=== PATIENT | female | born 1945 | race Two or more races ===

== ENCOUNTER 2017-09-20 09:22 | Inpatient (IN) | payer MEDICARE, MEDICAID ==
[~2017-09-20] VITALS: Ht 160 cm; Wt 75.2 kg
[~2017-09-20 09:22] MED LIST: ALBU8.5H8 INH; AMLO5TAB2 PO; CARV3.122 PO; CYCL-259 PO; DOXY100C15 PO; DOXY100T PO; FLUT1BLS INH; GABA300C10 PO; GLIP5TAB10 PO; HYDR25TA6 PO; IPRA3AMP NPPB; LOSA50TA6 PO; METF100010 PO; MONT10TA9 PO; OMEP-110 PO; PRED5TAB PO; PREG100C PO
[2017-09-20] MEDS ORDERED: CARV3.122 PO (10:41)
[2017-09-20] MEDS ORDERED: LISI-170 PO (10:41)
[2017-09-20] MEDS ORDERED: DICL50TA4 PO (10:41)
[2017-09-20] MEDS ORDERED: ALBU8.5H8 INH (10:41)
[2017-09-20] MEDS ORDERED: ALBUTEROL/IPRATROPIUM 2.5MG/0.5MG, 3 ML ONE (11:26)
[2017-09-20] MEDS ORDERED: SODIUM CHLORIDE FLUSH 10ML SYR IVF ONE (11:30)
[2017-09-20] MEDS ORDERED: ALBUTEROL/IPRATROPIUM 2.5MG/0.5MG, 3 ML NPPB SCH (11:30)
[2017-09-20] MEDS ORDERED: SODIUM CHLORIDE 0.9% 1,000ML IVBOLUS ONE (11:30)
[2017-09-20 12:03] LABS: RAPID INFLUENZA A Negative (Negative); RAPID INFLUENZA B Negative (Negative)
[2017-09-20 12:08] LABS: BASOPHILS # (AUTO) 0.05 x10^3/uL (0-0.1); BASOPHILS % (AUTO) 0 % (0-1); EOSINOPHILS # (AUTO) 0.57 x10^3/uL (0-0.4); EOSINOPHILS % (AUTO) 4 % (1-7); LYMPHOCYTES # (AUTO) 2.21 x10^3/uL (1-3.4); LYMPHOCYTES % (AUTO) 17 % (22-44); MD NO; MEAN CORPUSCULAR HEMOGLOBIN 29.3 pg (27.0-34.8); MEAN CORPUSCULAR HGB CONC 33.1 g/dL (32.4-35.8); MEAN CORPUSCULAR VOLUME 88.4 fL (80-100); MEAN PLATELET VOLUME 8.1 fL (7.4-10.4); MONOCYTES # (AUTO) 0.86 x10^3/uL (0.2-0.8); MONOCYTES % (AUTO) 7 % (2-9); NEUTROPHILS # (AUTO) 9.45 x10^3/uL (1.8-6.8); NEUTROPHILS % (AUTO) 72 % (42-75); PLATELET COUNT 298 x10^3/uL (130-400); RED BLOOD COUNT 3.99 x10^6/uL (3.82-5.3); RED CELL DISTRIBUTION WIDTH 14.4 % (9.6-15.2)
[2017-09-20 12:20] LABS: ALBUMIN 3.5 g/dL (3.4-5.0); ANION GAP 5 mmol/L (5-15); CALCIUM 8.5 mg/dL (8.5-10.1); CHLORIDE 103 mmol/L (98-107); CREATININE 0.59 mg/dL (0.55-1.02)
[2017-09-20 12:23] LABS: TROPONIN I < 0.015 ng/mL (0.000-0.045)
[2017-09-20] MEDS ORDERED: CEFTRIAXONE PMX 1GM/50ML 50 ML IVPB ONE (12:30)
[2017-09-20] MEDS ORDERED: AZITHROMYCIN 500 MG in SODIUM CHLORIDE 0.9% 250 ML IV ONE (12:30)
[2017-09-20] MEDS ORDERED: BENZONATATE 100 MG CAPSULE PO ONE (13:00)
[2017-09-20] MEDS ORDERED: CEFTRIAXONE PMX 1GM/50ML 50 ML ONE (13:05)
[2017-09-20] MEDS ORDERED: DOCUSATE 100 MG CAPSULE PO PRN (14:00)
[2017-09-20] MEDS ORDERED: LABETALOL 5MG/ML, 20ML IVPush PRN (14:00)
[2017-09-20] MEDS ORDERED: POLYETHYLENE GLYCOL 17 GM PACKET PO PRN (14:00)
[2017-09-20] MEDS ORDERED: ONDANSETRON 2MG/ML, 2ML IVPush PRN (14:00)
[2017-09-20] MEDS ORDERED: CEFTRIAXONE PMX 1GM/50ML 50 ML IV SCH (14:00)
[2017-09-20] MEDS ORDERED: ALBUTEROL SULFATE 2.5 MG/3 ML NEB PRN (14:00)
[2017-09-20] MEDS ORDERED: BISACODYL 10 MG SUPP PR PRN (14:00)
[2017-09-20] MEDS: DICLOFENAC 50 MG TABLET.DR PO SCH ×2 (16:49→20:52)
[2017-09-20] MEDS: DOXYCYCLINE 100 MG in DEXTROSE 5% 250 ML IV SCH (16:49)
[2017-09-20 17:24] VITALS: BP 158/76
[2017-09-20 19:55] VITALS: BP 146/69
[2017-09-20] MEDS: METFORMIN HCL 1000 MG PO SCH (20:52)
[2017-09-20] MEDS: CARVEDILOL 3.125 MG TABLET PO SCH (20:52)
[2017-09-20] MEDS: GUAIFENESIN ER 600 MG TABLET PO SCH (20:52)
[2017-09-20] MEDS: ENOXAPARIN 40 MG/0.4 ML SQ SCH (20:52)
[2017-09-20] MEDS: MONTELUKAST 10 MG TABLET PO SCH (20:52)
[2017-09-21] MEDS: ACETAMINOPHEN 325 MG TABLET PO PRN ×3 (02:12→19:40)
[2017-09-21 03:33] VITALS: BP 124/63
[2017-09-21] MEDS: DOXYCYCLINE 100 MG in DEXTROSE 5% 250 ML IV SCH ×2 (04:42→17:40)
[2017-09-21 05:19] LABS: BASOPHILS # (AUTO) 0.05 x10^3/uL (0-0.1); BASOPHILS % (AUTO) 0 % (0-1); EOSINOPHILS # (AUTO) 0.41 x10^3/uL (0-0.4); EOSINOPHILS % (AUTO) 4 % (1-7); LYMPHOCYTES # (AUTO) 2.07 x10^3/uL (1-3.4); LYMPHOCYTES % (AUTO) 17 % (22-44); MD NO; MEAN CORPUSCULAR HGB CONC 33.7 g/dL (32.4-35.8); MEAN PLATELET VOLUME 8.2 fL (7.4-10.4); MONOCYTES # (AUTO) 0.98 x10^3/uL (0.2-0.8); MONOCYTES % (AUTO) 8 % (2-9); NEUTROPHILS # (AUTO) 8.39 x10^3/uL (1.8-6.8); NEUTROPHILS % (AUTO) 71 % (42-75); PLATELET COUNT 244 x10^3/uL (130-400); RED BLOOD COUNT 3.57 x10^6/uL (3.82-5.3); RED CELL DISTRIBUTION WIDTH 14.5 % (9.6-15.2)
[2017-09-21 05:28] LABS: ANION GAP 4 mmol/L (5-15); CALCIUM 8.3 mg/dL (8.5-10.1); CHLORIDE 106 mmol/L (98-107); CREATININE 0.51 mg/dL (0.55-1.02)
[2017-09-21 07:35] VITALS: BP 114/62
[2017-09-21] MEDS: LISINOPRIL 20 MG TABLET PO SCH (09:12)
[2017-09-21] MEDS: CARVEDILOL 3.125 MG TABLET PO SCH ×2 (09:12→19:41)
[2017-09-21] MEDS: GUAIFENESIN ER 600 MG TABLET PO SCH ×2 (09:12→19:42)
[2017-09-21] MEDS: DICLOFENAC 50 MG TABLET.DR PO SCH ×3 (09:12→19:42)
[2017-09-21] MEDS: KETOROLAC 30 MG/1 ML IVPush PRN ×2 (10:06→17:40)
[2017-09-21] MEDS: METFORMIN HCL 1000 MG PO SCH ×2 (10:07→19:45)
[2017-09-21] MEDS ORDERED: CEFTRIAXONE PMX 1GM/50ML 50 ML IV SCH (13:00)
[2017-09-21 13:36] VITALS: BP 110/66
[2017-09-21] MEDS ORDERED: CEFTRIAXONE 1,000 MG in DEXTROSE 5% 50 ML IV SCH ×2 (15:30)
[2017-09-21 18:30] VITALS: BP 157/82
[2017-09-21] MEDS: ALBUTEROL SULFATE 2.5 MG/3 ML NPPB PRN (19:18)
[2017-09-21] MEDS: MONTELUKAST 10 MG TABLET PO SCH (19:42)
[2017-09-21] MEDS: ENOXAPARIN 40 MG/0.4 ML SQ SCH (19:43)
[2017-09-22 02:46] VITALS: BP 117/66
[2017-09-22 05:27] LABS: BASOPHILS # (AUTO) 0.03 x10^3/uL (0-0.1); BASOPHILS % (AUTO) 0 % (0-1); EOSINOPHILS # (AUTO) 0.44 x10^3/uL (0-0.4); EOSINOPHILS % (AUTO) 4 % (1-7); LYMPHOCYTES # (AUTO) 1.71 x10^3/uL (1-3.4); LYMPHOCYTES % (AUTO) 17 % (22-44); MD NO; MEAN CORPUSCULAR HEMOGLOBIN 29.5 pg (27.0-34.8); MEAN CORPUSCULAR HGB CONC 32.9 g/dL (32.4-35.8); MEAN CORPUSCULAR VOLUME 89.6 fL (80-100); MEAN PLATELET VOLUME 8.2 fL (7.4-10.4); MONOCYTES # (AUTO) 0.84 x10^3/uL (0.2-0.8); MONOCYTES % (AUTO) 8 % (2-9); NEUTROPHILS # (AUTO) 7.18 x10^3/uL (1.8-6.8); NEUTROPHILS % (AUTO) 70 % (42-75); PLATELET COUNT 241 x10^3/uL (130-400); RED BLOOD COUNT 3.66 x10^6/uL (3.82-5.3); RED CELL DISTRIBUTION WIDTH 14.9 % (9.6-15.2)
[2017-09-22] MEDS: DOXYCYCLINE 100 MG in DEXTROSE 5% 250 ML IV SCH (05:48)
[2017-09-22 05:54] LABS: ANION GAP 7 mmol/L (5-15); CALCIUM 8.1 mg/dL (8.5-10.1); CHLORIDE 104 mmol/L (98-107)
[2017-09-22 05:55] LABS: CREATININE 0.61 mg/dL (0.55-1.02)
[2017-09-22] MEDS: ACETAMINOPHEN 325 MG TABLET PO PRN ×2 (06:47→10:44)
[2017-09-22 07:19] VITALS: BP 145/76
[2017-09-22] MEDS: METFORMIN HCL 1000 MG PO SCH (09:00)
[2017-09-22] MEDS ORDERED: CEFD300C37 PO (09:01)
[2017-09-22] MEDS ORDERED: DOXY100T PO (09:01)
[2017-09-22] MEDS ORDERED: FLU VACC QS2017-18 (36MOS+) UP/PF 0.5 ML IM-VACC ONE (10:30)
[2017-09-22] MEDS: CARVEDILOL 3.125 MG TABLET PO SCH (10:39)
[2017-09-22] MEDS: DICLOFENAC 50 MG TABLET.DR PO SCH (10:39)
[2017-09-22] MEDS: GUAIFENESIN ER 600 MG TABLET PO SCH (10:40)
[2017-09-22] MEDS: LISINOPRIL 20 MG TABLET PO SCH (10:41)
[2017-09-22] MEDS: ALBUTEROL SULFATE 2.5 MG/3 ML NPPB PRN (11:11)
== END 2017-09-22 13:29 | disposition home health service (06) | DRG 871 ==
LOC: ED 12:21 → EDIP 12:41 → 3NE 15:57
PROVIDERS: ADMIT Internal Medicine; ATTEND Internal Medicine
DX: A41.9 Sepsis, unspecified organism (principal); J96.01 Acute respiratory failure with hypoxia; J15.9 Unspecified bacterial pneumonia; J44.0 Chronic obstructive pulmonary disease with (acute) lower respiratory infection; J45.901 Unspecified asthma with (acute) exacerbation; E11.40 Type 2 diabetes mellitus with diabetic neuropathy, unspecified; E11.65 Type 2 diabetes mellitus with hyperglycemia; G89.29 Other chronic pain; I11.9 Hypertensive heart disease without heart failure; R60.0 Localized edema; Z87.01 Personal history of pneumonia (recurrent); Z87.891 Personal history of nicotine dependence; Z90.710 Acquired absence of both cervix and uterus; Z23 Encounter for immunization; Z51.5 Encounter for palliative care
CPT/HCPCS: 36415; 71010; 80048; 82040; 83605; 83880; 84484; 85025; 87040; 87400; 90686; 93005; 94640; 96361; 96365; 96375; J0456; J0696; J1650; J1885; J7060; J7613; J7620; J7030; J7050

== ENCOUNTER 2019-01-20 17:56 | Inpatient (IN) | payer MEDICARE, MEDICAID ==
[~2019-01-20] VITALS: Ht 154.9 cm; Wt 76.2 kg
[~2019-01-20 17:56] MED LIST changes: +AMLO-150 PO; -AMLO5TAB2 PO; +CEFD300C37 PO; +DICL50TA4 PO; -IPRA3AMP NPPB; +IPRA3AMP30 NPPB; +LISI-170 PO; +LOSA50TA14 PO; -LOSA50TA6 PO
--- NOTE | 2019-01-20 18:10 | NUR ---
Placed on 2 liters oxygen via nasal cannula.
--- NOTE | 2019-01-20 18:18 | NUR ---
BIOLOGY INTERN: PT TO ROOM FROM LOBBY VIA WHEELCHAIR
[2019-01-20] MEDS ORDERED: ALBUTEROL/IPRATROPIUM 2.5MG/0.5MG, 3 ML ONE (18:24)
[2019-01-20 18:25] LABS: BASOPHILS # (AUTO) 0.06 x10^3/uL (0-0.1); BASOPHILS % (AUTO) 1 % (0-1); EOSINOPHILS # (AUTO) 0.77 x10^3/uL (0-0.4); EOSINOPHILS % (AUTO) 7 % (1-7); LYMPHOCYTES # (AUTO) 3.39 x10^3/uL (1-3.4); LYMPHOCYTES % (AUTO) 30 % (22-44); MD NO; MEAN CORPUSCULAR HEMOGLOBIN 29.9 pg (27.0-34.8); MEAN CORPUSCULAR HGB CONC 33.5 g/dL (32.4-35.8); MEAN CORPUSCULAR VOLUME 89.3 fL (80-100); MEAN PLATELET VOLUME 7.4 fL (7.4-10.4); MONOCYTES # (AUTO) 0.78 x10^3/uL (0.2-0.8); MONOCYTES % (AUTO) 7 % (2-9); NEUTROPHILS # (AUTO) 6.22 x10^3/uL (1.8-6.8); NEUTROPHILS % (AUTO) 55 % (42-75); PLATELET COUNT 430 x10^3/uL (130-400); RED BLOOD COUNT 4.42 x10^6/uL (3.82-5.3); RED CELL DISTRIBUTION WIDTH 14.1 % (9.6-15.2)
[2019-01-20] MEDS ORDERED: ALBUTEROL/IPRATROPIUM 2.5MG/0.5MG, 3 ML NPPB SCH (18:30)
[2019-01-20 18:37] LABS: ALBUMIN 3.6 g/dL (3.4-5.0); ANION GAP 6 mmol/L (5-15); CALCIUM 8.7 mg/dL (8.5-10.1); CHLORIDE 105 mmol/L (98-107); CREATININE 0.83 mg/dL (0.55-1.02)
[2019-01-20 18:41] LABS: TROPONIN I < 0.015 ng/mL (0.000-0.045)
--- NOTE | 2019-01-20 19:02 | NUR ---
REPORT GIVEN TO SYLWIA DICK
[2019-01-20] MEDS ORDERED: CARB1TAB47 PO (20:29)
[2019-01-20] MEDS ORDERED: AMLO10TA8 PO (20:29)
[2019-01-20] MEDS ORDERED: PROP20TA PO (20:29)
[2019-01-20] MEDS ORDERED: DULO30CA2 PO (20:29)
--- NOTE | 2019-01-20 20:30 | NUR ---
REPORT GIVEN TO TONY DICK.
[2019-01-20] MEDS: ENOXAPARIN 40 MG/0.4 ML SQ SCH (21:00)
[2019-01-20] MEDS ORDERED: ENALAPRILAT 1.25 MG/ML, 2ML IVPush PRN (21:00)
[2019-01-20] MEDS ORDERED: AZITHROMYCIN 500 MG TABLET PO ONE (21:00)
[2019-01-20] MEDS: CARBIDOPA LEVO HOMEMEDPO SCH (21:00)
[2019-01-20] MEDS ORDERED: ONDANSETRON 2MG/ML, 2ML IVPush PRN (21:00)
[2019-01-20 21:40] LABS: HEMOGLOBIN A1C 7.6 % (4.2-6.3)
[2019-01-20 22:00] VITALS: BP 137/54
[2019-01-20] MEDS: metFORMIN XR 500 MG TAB.ER.24H PO SCH (23:12)
[2019-01-20] MEDS: DULOXETINE 30 MG CAPSULE.DR PO SCH (23:13)
[2019-01-20] MEDS: ACETAMINOPHEN 325 MG TABLET PO PRN (23:14)
[2019-01-20] MEDS: AMLODIPINE 5 MG TABLET PO SCH (23:14)
[2019-01-21 01:18] VITALS: BP 141/53
[2019-01-21] MEDS: ALBUTEROL/IPRATROPIUM 2.5MG/0.5MG, 3 ML NPPB SCH ×4 (07:00→20:00)
[2019-01-21 07:50] VITALS: BP 145/70
[2019-01-21] MEDS: metFORMIN XR 500 MG TAB.ER.24H PO SCH ×2 (09:00→22:39)
[2019-01-21] MEDS: SODIUM CHLORIDE FLUSH 10ML SYR IVF SCH ×2 (09:00→22:39)
[2019-01-21] MEDS: PROPRANOLOL 20 MG TABLET PO SCH (09:00)
[2019-01-21] MEDS ORDERED: GLUCAGON 1 MG IM PRN (09:00)
[2019-01-21] MEDS: CARBIDOPA LEVO HOMEMEDPO SCH ×3 (09:00→21:00)
[2019-01-21] MEDS ORDERED: DEXTROSE 4 GM TAB.CHEW PO PRN (09:00)
[2019-01-21] MEDS ORDERED: DEXTROSE 50%, 50ML SYRINGE IVPush PRN (09:00)
[2019-01-21] MEDS: LISINOPRIL 20 MG TABLET PO SCH (09:01)
[2019-01-21] MEDS: AMLODIPINE 5 MG TABLET PO SCH ×2 (09:01→22:39)
[2019-01-21] MEDS: DULOXETINE 30 MG CAPSULE.DR PO SCH ×2 (09:01→22:39)
[2019-01-21] MEDS: methylPREDNISolone SOD SUCC 125 MG/2 ML IVPush SCH ×3 (09:53→22:36)
[2019-01-21 14:40] VITALS: BP 135/56
[2019-01-21 19:42] VITALS: BP 120/72
[2019-01-21] MEDS: ENOXAPARIN 40 MG/0.4 ML SQ SCH (22:35)
[2019-01-22 02:22] VITALS: BP 128/73
[2019-01-22] MEDS: methylPREDNISolone SOD SUCC 125 MG/2 ML IVPush SCH ×4 (03:13→21:43)
[2019-01-22 04:51] LABS: BASOPHILS # (AUTO) 0.02 x10^3/uL (0-0.1); BASOPHILS % (AUTO) 0 % (0-1); EOSINOPHILS % (AUTO) 0 % (1-7); LYMPHOCYTES # (AUTO) 1.35 x10^3/uL (1-3.4); LYMPHOCYTES % (AUTO) 9 % (22-44); MD NO; MEAN CORPUSCULAR HEMOGLOBIN 29.2 pg (27.0-34.8); MEAN CORPUSCULAR HGB CONC 32.7 g/dL (32.4-35.8); MEAN CORPUSCULAR VOLUME 89.2 fL (80-100); MEAN PLATELET VOLUME 7.8 fL (7.4-10.4); MONOCYTES % (AUTO) 1 % (2-9); NEUTROPHILS # (AUTO) 14.45 x10^3/uL (1.8-6.8); NEUTROPHILS % (AUTO) 91 % (42-75); PLATELET COUNT 400 x10^3/uL (130-400); RED BLOOD COUNT 4.09 x10^6/uL (3.82-5.3); RED CELL DISTRIBUTION WIDTH 14.1 % (9.6-15.2)
[2019-01-22 05:05] LABS: CALCIUM 8.6 mg/dL (8.5-10.1); CHLORIDE 102 mmol/L (98-107)
[2019-01-22 05:09] LABS: ALBUMIN 3.4 g/dL (3.4-5.0); CREATININE 0.83 mg/dL (0.55-1.02)
[2019-01-22 05:20] LABS: ANION GAP 7 mmol/L (5-15)
[2019-01-22] MEDS ORDERED: GLUCAGON 1 MG IM PRN (07:30)
[2019-01-22] MEDS ORDERED: DEXTROSE 4 GM TAB.CHEW PO PRN (07:30)
[2019-01-22] MEDS ORDERED: DEXTROSE 50%, 50ML SYRINGE IVPush PRN (07:30)
[2019-01-22] MEDS: ALBUTEROL/IPRATROPIUM 2.5MG/0.5MG, 3 ML NPPB SCH ×3 (07:48→20:00)
[2019-01-22] MEDS: AMLODIPINE 5 MG TABLET PO SCH ×2 (09:00→21:48)
[2019-01-22] MEDS: CARBIDOPA LEVO HOMEMEDPO SCH ×3 (09:00→21:00)
[2019-01-22] MEDS: SODIUM CHLORIDE FLUSH 10ML SYR IVF SCH ×3 (09:00→21:43)
[2019-01-22] MEDS: DULOXETINE 30 MG CAPSULE.DR PO SCH ×2 (09:13→21:48)
[2019-01-22] MEDS: PROPRANOLOL 20 MG TABLET PO SCH (09:13)
[2019-01-22] MEDS: LISINOPRIL 20 MG TABLET PO SCH (09:13)
[2019-01-22] MEDS: metFORMIN XR 500 MG TAB.ER.24H PO SCH ×2 (09:14→21:48)
[2019-01-22 09:18] VITALS: BP 153/69
[2019-01-22] MEDS: ACETAMINOPHEN 325 MG TABLET PO PRN (11:50)
[2019-01-22] MEDS: INSULIN LISPRO 100 UNITS/ML, PEN SQ-INSULIN SCH ×3 (13:18→21:48)
[2019-01-22 14:16] VITALS: BP 148/76
[2019-01-22 19:10] VITALS: BP 148/72
[2019-01-22] MEDS: ENOXAPARIN 40 MG/0.4 ML SQ SCH (21:48)
[2019-01-23 00:45] VITALS: BP 162/69
[2019-01-23] MEDS: methylPREDNISolone SOD SUCC 125 MG/2 ML IVPush SCH (03:32)
[2019-01-23 05:44] LABS: BASOPHILS % (AUTO) 0 % (0-1); EOSINOPHILS % (AUTO) 0 % (1-7); LYMPHOCYTES # (AUTO) 1.08 x10^3/uL (1-3.4); LYMPHOCYTES % (AUTO) 6 % (22-44); MD NO; MEAN CORPUSCULAR HGB CONC 32.8 g/dL (32.4-35.8); MEAN CORPUSCULAR VOLUME 88.5 fL (80-100); MEAN PLATELET VOLUME 7.6 fL (7.4-10.4); MONOCYTES # (AUTO) 0.13 x10^3/uL (0.2-0.8); MONOCYTES % (AUTO) 1 % (2-9); NEUTROPHILS # (AUTO) 16.01 x10^3/uL (1.8-6.8); NEUTROPHILS % (AUTO) 93 % (42-75); PLATELET COUNT 376 x10^3/uL (130-400); RED BLOOD COUNT 4.31 x10^6/uL (3.82-5.3); RED CELL DISTRIBUTION WIDTH 13.9 % (9.6-15.2)
[2019-01-23 05:55] LABS: ALBUMIN 3.4 g/dL (3.4-5.0); ANION GAP 5 mmol/L (5-15); CALCIUM 8.5 mg/dL (8.5-10.1); CHLORIDE 103 mmol/L (98-107)
[2019-01-23 05:58] LABS: ALANINE AMINOTRANSFERASE 15 U/L (12-78); ALKALINE PHOSPHATASE 120 U/L (45-117); BILIRUBIN,TOTAL 0.4 mg/dL (0.2-1.0); CREATININE 0.78 mg/dL (0.55-1.02); TOTAL PROTEIN 7.4 g/dL (6.4-8.2)
[2019-01-23 07:51] VITALS: BP 155/67
[2019-01-23] MEDS: ALBUTEROL/IPRATROPIUM 2.5MG/0.5MG, 3 ML NPPB SCH ×3 (07:58→14:56)
[2019-01-23] MEDS: CARBIDOPA LEVO HOMEMEDPO SCH ×2 (09:00→16:00)
[2019-01-23] MEDS: metFORMIN XR 500 MG TAB.ER.24H PO SCH (10:00)
[2019-01-23] MEDS: PROPRANOLOL 20 MG TABLET PO SCH (10:00)
[2019-01-23] MEDS: INSULIN LISPRO 100 UNITS/ML, PEN SQ-INSULIN SCH ×3 (10:00→17:32)
[2019-01-23] MEDS: DULOXETINE 30 MG CAPSULE.DR PO SCH (10:01)
[2019-01-23] MEDS: AMLODIPINE 5 MG TABLET PO SCH (10:01)
[2019-01-23] MEDS: SODIUM CHLORIDE FLUSH 10ML SYR IVF SCH (10:01)
[2019-01-23] MEDS: LISINOPRIL 20 MG TABLET PO SCH (10:01)
[2019-01-23] MEDS ORDERED: PRED10TA PO (11:19)
[2019-01-23 14:53] VITALS: BP 154/67
[2019-01-23 16:46] VITALS: BP 153/70
[2019-01-24] MEDS ORDERED: TIOT18CA INH (18:04)
== END 2019-01-23 18:17 | disposition home or self-care (01) | DRG 189 ==
LOC: ED 19:10 → EDIP 19:45 → 3NE 20:43
PROVIDERS: ADMIT Family Medicine; ATTEND Family Medicine
DX: J96.01 Acute respiratory failure with hypoxia (principal); J44.1 Chronic obstructive pulmonary disease with (acute) exacerbation; R53.81 Other malaise; Z87.01 Personal history of pneumonia (recurrent); E11.40 Type 2 diabetes mellitus with diabetic neuropathy, unspecified; G20 Parkinson's disease; I10 Essential (primary) hypertension; Z87.891 Personal history of nicotine dependence; Z90.710 Acquired absence of both cervix and uterus; Z99.81 Dependence on supplemental oxygen
CPT/HCPCS: 36415; 71045; 80048; 80053; 82040; 82962; 83036; 83735; 83880; 84100; 84484; 85025; 93005; 94640; 99285; G0378; J1650; J7620; J1815; J2930; J7512

== ENCOUNTER 2019-12-05 14:06 | Inpatient (IN) | payer MEDICARE, MEDICAID ==
[~2019-12-05] VITALS: Ht 157.5 cm; Wt 74.8 kg
[~2019-12-05 14:06] MED LIST changes: +AMLO10TA8 PO; +CARB1TAB47 PO; +DULO30CA2 PO; +MONT10TA11 PO; -MONT10TA9 PO; +PRED10TA PO; +PROP20TA PO; +TIOT18CA INH
--- NOTE | 2019-12-05 16:36 | NUR ---
PT BROUGHT BACK TO ROOM VIA WC. FAMILY AT BS.
[2019-12-05] MEDS ORDERED: HYDROmorphone 1 MG/ML, 1ML INJ ONE ×2 (17:29→19:46)
[2019-12-05] MEDS ORDERED: CYCLOBENZAPRINE 10 MG TABLET ONE (17:29)
[2019-12-05] MEDS ORDERED: SODIUM CHLORIDE FLUSH 10ML SYR IVF ONE (17:30)
[2019-12-05] MEDS ORDERED: CYCLOBENZAPRINE 10 MG TABLET PO ONE (17:30)
[2019-12-05] MEDS: HYDROmorphone 2 MG/ML, 1ML IVPush PRN ×2 (17:33→19:49)
--- NOTE | 2019-12-05 18:11 | NUR ---
PT MEDICATED PER ORDERS. UNDERSTANDS POC. DAUGHTER AT BS.
--- NOTE | 2019-12-05 18:47 | NUR ---
PT AND FAMILY QUESTIONING HOW PT WILL MANAGE AT HOME WITH HER SEVERE BACK PAIN. ERP AT FOR RECHECK.
--- NOTE | 2019-12-05 19:18 | NUR ---
PT TO CT VIA [facility].
[2019-12-05] MEDS ORDERED: LORazepam 2 MG/ML, 1ML IVPush ONE (19:30)
[2019-12-05] MEDS ORDERED: HYDROmorphone 2 MG/ML, 1ML IVPush PRN (19:30)
--- NOTE | 2019-12-05 19:44 | NUR ---
ADMITTING MD WAS IN TO SEE PT.
[2019-12-05] MEDS ORDERED: METF500T27 PO (19:55)
[2019-12-05] MEDS ORDERED: HYDR25TA6 PO (19:56)
[2019-12-05] MEDS ORDERED: PROP20TA PO (19:56)
[2019-12-05] MEDS ORDERED: GABA300C10 PO (19:59)
[2019-12-05] MEDS ORDERED: DULO30CA2 PO (19:59)
[2019-12-05] MEDS ORDERED: FLUT1AER INH (19:59)
[2019-12-05] MEDS ORDERED: ALBU18HF INH (19:59)
[2019-12-05] MEDS ORDERED: ONDANSETRON ODT 4 MG PO PRN (20:00)
[2019-12-05] MEDS ORDERED: BISACODYL 10 MG SUPP PR PRN (20:00)
[2019-12-05] MEDS ORDERED: POLYETHYLENE GLYCOL 17 GM PACKET PO PRN (20:00)
[2019-12-05] MEDS ORDERED: ALBUTEROL SULFATE 2.5 MG/3 ML NEB PRN (20:00)
[2019-12-05 20:01] LABS: BASOPHILS # (AUTO) 0.04 x10^3/uL (0-0.1); BASOPHILS % (AUTO) 0 % (0-1); EOSINOPHILS # (AUTO) 0.32 x10^3/uL (0-0.4); EOSINOPHILS % (AUTO) 3 % (1-7); LYMPHOCYTES # (AUTO) 2.26 x10^3/uL (1-3.4); LYMPHOCYTES % (AUTO) 20 % (22-44); MD NO; MEAN CORPUSCULAR HEMOGLOBIN 28.2 pg (27.0-34.8); MEAN CORPUSCULAR HGB CONC 32.6 g/dL (32.4-35.8); MEAN CORPUSCULAR VOLUME 86.6 fL (80-100); MEAN PLATELET VOLUME 7.5 fL (7.4-10.4); MONOCYTES % (AUTO) 4 % (2-9); NEUTROPHILS # (AUTO) 8.12 x10^3/uL (1.8-6.8); NEUTROPHILS % (AUTO) 73 % (42-75); PLATELET COUNT 396 x10^3/uL (130-400); RED BLOOD COUNT 4.01 x10^6/uL (3.82-5.3); RED CELL DISTRIBUTION WIDTH 16.1 % (9.6-15.2)
--- NOTE | 2019-12-05 20:01 | NUR ---
PT MEDICATED WITH ANOTHER 1MG DILAUDID FOR BACK PAIN. MORE CALM NOW. DAUGHTER REMAINS AT BS.
[2019-12-05 20:11] LABS: ALBUMIN 3.7 g/dL (3.4-5.0); ANION GAP 7 mmol/L (5-15); CALCIUM 8.8 mg/dL (8.5-10.1); CHLORIDE 106 mmol/L (98-107); CREATININE 0.71 mg/dL (0.55-1.02)
[2019-12-05] MEDS ORDERED: TEMPLATE NON-FORMULARY MED. (Metformin Hcl** (Metformin Hcl Er**) 1,000 MG) PO SCH (21:00)
[2019-12-05 21:30] VITALS: BP 197/74
[2019-12-05] MEDS: GABAPENTIN 300 MG CAPSULE PO SCH (21:55)
[2019-12-05] MEDS: SODIUM CHLORIDE FLUSH 10ML SYR IVF SCH (21:55)
[2019-12-05] MEDS: AMLODIPINE 10 MG TAB PO SCH (21:55)
[2019-12-05] MEDS: CARVEDILOL 3.125 MG TABLET PO SCH (21:55)
[2019-12-05] MEDS: DULOXETINE 30 MG CAPSULE.DR PO SCH (21:56)
[2019-12-05] MEDS: LIDODERM 5% PATCH TD SCH (21:56)
[2019-12-05] MEDS: MONTELUKAST 10 MG TABLET PO SCH (21:56)
[2019-12-05] MEDS: CARBIDOPA/LEVODOPA 25 MG/100 MG TABLET PO SCH (22:00)
[2019-12-06 01:17] VITALS: BP 159/75
[2019-12-06 07:36] VITALS: BP 135/73
[2019-12-06 08:52] LABS: BASOPHILS # (AUTO) 0.03 x10^3/uL (0-0.1); BASOPHILS % (AUTO) 0 % (0-1); EOSINOPHILS % (AUTO) 0 % (1-7); LYMPHOCYTES # (AUTO) 1.79 x10^3/uL (1-3.4); LYMPHOCYTES % (AUTO) 15 % (22-44); MD NO; MEAN CORPUSCULAR HGB CONC 31.7 g/dL (32.4-35.8); MEAN CORPUSCULAR VOLUME 88.5 fL (80-100); MEAN PLATELET VOLUME 7.4 fL (7.4-10.4); MONOCYTES % (AUTO) 3 % (2-9); NEUTROPHILS # (AUTO) 9.67 x10^3/uL (1.8-6.8); NEUTROPHILS % (AUTO) 81 % (42-75); PLATELET COUNT 390 x10^3/uL (130-400); RED BLOOD COUNT 4.01 x10^6/uL (3.82-5.3); RED CELL DISTRIBUTION WIDTH 16.3 % (9.6-15.2)
[2019-12-06 08:56] LABS: INTERNATIONAL NORMALIZED RATIO 0.96 (0.93-1.1); PROTHROMBIN TIME 10.2 Seconds (9.6-11.5)
[2019-12-06] MEDS: BUDESONIDE 0.5 MG/2 ML INHA NEB SCH ×2 (09:00→20:12)
[2019-12-06] MEDS: ALBUTEROL/IPRATROPIUM 2.5MG/0.5MG, 3 ML NEB SCH ×3 (09:00→20:12)
[2019-12-06] MEDS ORDERED: LISINOPRIL 20 MG TABLET PO SCH (09:00)
[2019-12-06 09:05] LABS: ALANINE AMINOTRANSFERASE 14 U/L (12-78); ALBUMIN 3.2 g/dL (3.4-5.0); ANION GAP 7 mmol/L (5-15); CALCIUM 8.6 mg/dL (8.5-10.1); CHLORIDE 107 mmol/L (98-107); CREATININE 0.66 mg/dL (0.55-1.02)
[2019-12-06 09:07] LABS: ALKALINE PHOSPHATASE 127 U/L (45-117); BILIRUBIN,TOTAL 0.3 mg/dL (0.2-1.0); TOTAL PROTEIN 7.3 g/dL (6.4-8.2)
[2019-12-06] MEDS: ACETAMINOPHEN 325 MG TABLET PO PRN (09:43)
[2019-12-06] MEDS: CARVEDILOL 3.125 MG TABLET PO SCH (09:43)
[2019-12-06] MEDS: DULOXETINE 30 MG CAPSULE.DR PO SCH (09:43)
[2019-12-06] MEDS: HYDROCHLOROTHIAZIDE 25 MG TABLET PO SCH (09:44)
[2019-12-06] MEDS: metFORMIN XR 500 MG TAB.ER.24H PO SCH (09:44)
[2019-12-06] MEDS: CARBIDOPA/LEVODOPA 25 MG/100 MG TABLET PO SCH ×2 (09:44→15:27)
[2019-12-06] MEDS: GABAPENTIN 300 MG CAPSULE PO SCH ×2 (09:44→15:27)
[2019-12-06] MEDS: SODIUM CHLORIDE FLUSH 10ML SYR IVF SCH (09:44)
[2019-12-06] MEDS: SENNA/DOCUSATE TABLET PO SCH (09:44)
[2019-12-06] MEDS: LISINOPRIL 20 MG TABLET PO SCH (09:44)
[2019-12-06] MEDS: AMLODIPINE 10 MG TAB PO SCH (09:46)
[2019-12-06] MEDS: LIDODERM REMOVE PATCH NOTE XX SCH (10:00)
[2019-12-06] MEDS: IBUPROFEN 600 MG TABLET PO PRN (13:47)
[2019-12-06 13:52] VITALS: BP 113/59
[2019-12-06] MEDS: METHOCARBAMOL 500 MG TABLET PO PRN (15:27)
[2019-12-07] MEDS: SODIUM CHLORIDE FLUSH 10ML SYR IVF SCH ×3 (00:26→21:00)
[2019-12-07] MEDS: MONTELUKAST 10 MG TABLET PO SCH ×2 (00:27→21:54)
[2019-12-07] MEDS: LISINOPRIL 20 MG TABLET PO SCH ×3 (00:27→21:55)
[2019-12-07] MEDS: DULOXETINE 30 MG CAPSULE.DR PO SCH ×3 (00:28→21:55)
[2019-12-07] MEDS: CARBIDOPA/LEVODOPA 25 MG/100 MG TABLET PO SCH ×4 (00:29→21:55)
[2019-12-07] MEDS: GABAPENTIN 300 MG CAPSULE PO SCH ×4 (00:31→21:54)
[2019-12-07] MEDS: CARVEDILOL 3.125 MG TABLET PO SCH ×3 (00:31→21:55)
[2019-12-07] MEDS: AMLODIPINE 10 MG TAB PO SCH ×3 (00:31→21:54)
[2019-12-07] MEDS: LIDODERM 5% PATCH TD SCH ×2 (00:32→21:55)
[2019-12-07 02:00] VITALS: BP 125/71
[2019-12-07] MEDS: ALBUTEROL/IPRATROPIUM 2.5MG/0.5MG, 3 ML NEB SCH ×4 (03:10→19:39)
[2019-12-07] MEDS: SENNA/DOCUSATE TABLET PO SCH (07:17)
[2019-12-07 07:49] VITALS: BP 114/57
[2019-12-07] MEDS: metFORMIN XR 500 MG TAB.ER.24H PO SCH (09:51)
[2019-12-07] MEDS: ACETAMINOPHEN 325 MG TABLET PO PRN (09:51)
[2019-12-07] MEDS: HYDROCHLOROTHIAZIDE 25 MG TABLET PO SCH (09:52)
[2019-12-07] MEDS: LIDODERM REMOVE PATCH NOTE XX SCH (10:00)
[2019-12-07 10:28] LABS: MICROSCOPIC INDICATED
[2019-12-07] MEDS: BUDESONIDE 0.5 MG/2 ML INHA NEB SCH ×2 (10:30→19:39)
[2019-12-07 11:00] LABS: CULTURE INDICATED? YES
[2019-12-07 13:30] VITALS: BP 126/66
[2019-12-07] MEDS: METHOCARBAMOL 500 MG TABLET PO PRN ×2 (15:37→23:30)
[2019-12-07 20:38] VITALS: BP 107/56
[2019-12-07] MEDS: IBUPROFEN 600 MG TABLET PO PRN (22:06)
[2019-12-08 00:52] VITALS: BP 112/57
[2019-12-08] MEDS: ALBUTEROL/IPRATROPIUM 2.5MG/0.5MG, 3 ML NEB SCH ×4 (01:44→20:05)
[2019-12-08] MEDS: HYDROmorphone 2 MG/ML, 1ML IVPush PRN ×2 (05:08→18:33)
[2019-12-08] MEDS: BUDESONIDE 0.5 MG/2 ML INHA NEB SCH ×2 (06:31→20:05)
[2019-12-08 08:11] VITALS: BP 108/73
[2019-12-08] MEDS: HYDROCHLOROTHIAZIDE 25 MG TABLET PO SCH (08:13)
[2019-12-08] MEDS: SENNA/DOCUSATE TABLET PO SCH (08:13)
[2019-12-08] MEDS: LISINOPRIL 20 MG TABLET PO SCH ×2 (08:13→21:25)
[2019-12-08] MEDS: metFORMIN XR 500 MG TAB.ER.24H PO SCH (08:13)
[2019-12-08] MEDS: METHOCARBAMOL 500 MG TABLET PO PRN ×2 (08:13→16:44)
[2019-12-08] MEDS: GABAPENTIN 300 MG CAPSULE PO SCH ×3 (08:13→21:24)
[2019-12-08] MEDS: CARBIDOPA/LEVODOPA 25 MG/100 MG TABLET PO SCH ×3 (08:14→21:25)
[2019-12-08] MEDS: AMLODIPINE 10 MG TAB PO SCH ×2 (08:14→21:25)
[2019-12-08] MEDS: DULOXETINE 30 MG CAPSULE.DR PO SCH ×2 (08:14→21:24)
[2019-12-08] MEDS: CARVEDILOL 3.125 MG TABLET PO SCH ×2 (08:14→21:25)
[2019-12-08] MEDS: SODIUM CHLORIDE FLUSH 10ML SYR IVF SCH ×2 (08:14→21:26)
[2019-12-08] MEDS: LIDODERM REMOVE PATCH NOTE XX SCH (08:17)
[2019-12-08 08:22] LABS: BASOPHILS # (AUTO) 0.04 x10^3/uL (0-0.1); BASOPHILS % (AUTO) 0 % (0-1); EOSINOPHILS # (AUTO) 0.31 x10^3/uL (0-0.4); EOSINOPHILS % (AUTO) 3 % (1-7); LYMPHOCYTES # (AUTO) 2.37 x10^3/uL (1-3.4); LYMPHOCYTES % (AUTO) 20 % (22-44); MD NO; MEAN CORPUSCULAR HEMOGLOBIN 28.4 pg (27.0-34.8); MEAN CORPUSCULAR HGB CONC 32.8 g/dL (32.4-35.8); MEAN CORPUSCULAR VOLUME 86.6 fL (80-100); MEAN PLATELET VOLUME 7.3 fL (7.4-10.4); MONOCYTES # (AUTO) 0.65 x10^3/uL (0.2-0.8); MONOCYTES % (AUTO) 6 % (2-9); NEUTROPHILS # (AUTO) 8.43 x10^3/uL (1.8-6.8); NEUTROPHILS % (AUTO) 71 % (42-75); PLATELET COUNT 383 x10^3/uL (130-400); RED BLOOD COUNT 4.07 x10^6/uL (3.82-5.3); RED CELL DISTRIBUTION WIDTH 15.6 % (9.6-15.2)
[2019-12-08 10:24] VITALS: BP 112/66
[2019-12-08 14:45] VITALS: BP 118/70
[2019-12-08] MEDS: ACETAMINOPHEN 325 MG TABLET PO PRN (14:57)
[2019-12-08 15:21] LABS: MICROSCOPIC AUTO
[2019-12-08 16:19] LABS: CULTURE INDICATED? YES
[2019-12-08 19:40] VITALS: BP 160/72
[2019-12-08] MEDS: LIDODERM 5% PATCH TD SCH (21:25)
[2019-12-08] MEDS: MONTELUKAST 10 MG TABLET PO SCH (21:25)
[2019-12-09] MEDS: HYDROmorphone 2 MG/ML, 1ML IVPush PRN ×2 (02:21→12:39)
[2019-12-09] MEDS: LIDODERM 5% PATCH TD SCH (02:33)
[2019-12-09] MEDS: ALBUTEROL/IPRATROPIUM 2.5MG/0.5MG, 3 ML NEB SCH ×4 (03:00→20:30)
[2019-12-09 03:30] VITALS: BP 118/59
[2019-12-09] MEDS ORDERED: D5%-0.9% NACL 500 ML IV SCH (07:30)
[2019-12-09 07:52] VITALS: BP 111/67
[2019-12-09 08:24] LABS: MEAN CORPUSCULAR HGB CONC 31.8 g/dL (32.4-35.8); MEAN CORPUSCULAR VOLUME 88.2 fL (80-100); MEAN PLATELET VOLUME 7.7 fL (7.4-10.4); PLATELET COUNT 353 x10^3/uL (130-400); RED BLOOD COUNT 3.98 x10^6/uL (3.82-5.3); RED CELL DISTRIBUTION WIDTH 15.9 % (9.6-15.2)
[2019-12-09 08:34] LABS: ANION GAP 7 mmol/L (5-15); CALCIUM 8.3 mg/dL (8.5-10.1); CHLORIDE 96 mmol/L (98-107); CREATININE 0.64 mg/dL (0.55-1.02)
[2019-12-09] MEDS: GABAPENTIN 300 MG CAPSULE PO SCH ×3 (08:39→23:52)
[2019-12-09] MEDS: CARBIDOPA/LEVODOPA 25 MG/100 MG TABLET PO SCH ×3 (08:39→23:52)
[2019-12-09] MEDS: CARVEDILOL 3.125 MG TABLET PO SCH ×2 (08:40→23:50)
[2019-12-09] MEDS: HYDROCHLOROTHIAZIDE 25 MG TABLET PO SCH (08:40)
[2019-12-09] MEDS: AMLODIPINE 10 MG TAB PO SCH ×2 (08:40→23:50)
[2019-12-09] MEDS: LISINOPRIL 20 MG TABLET PO SCH ×2 (08:40→23:50)
[2019-12-09] MEDS: DULOXETINE 30 MG CAPSULE.DR PO SCH ×2 (08:40→23:52)
[2019-12-09] MEDS: SENNA/DOCUSATE TABLET PO SCH (08:41)
[2019-12-09] MEDS: SODIUM CHLORIDE FLUSH 10ML SYR IVF SCH ×2 (08:41→23:51)
[2019-12-09 08:56] LABS: MD YES
[2019-12-09 08:58] LABS: BASOS#(MANUAL) 0.09 x10^3/uL (0-0.1); BASOS% (MANUAL) 1 % (0-1); EOS#(MANUAL) 0.19 x10^3/uL (0.0-0.4); EOS% (MANUAL) 2 % (1-7); LYMPHS% (MANUAL) 14 % (22-44); MONOS#(MANUAL) 0.56 x10^3/uL (0.3-2.7); MONOS% (MANUAL) 6 % (2-9); SEG#(MANUAL) 7.16 x10^3/uL (1.8-6.8); SEGS% (MANUAL) 77 % (42-75)
[2019-12-09 08:59] LABS: <PLATELET ESTIMATE> ADEQUATE; <PLT MORPHOLOGY> NORMAL PLT MORPH; ANISOCYTOSIS 1+
[2019-12-09] MEDS: LIDODERM REMOVE PATCH NOTE XX SCH (10:00)
[2019-12-09] MEDS: BUDESONIDE 0.5 MG/2 ML INHA NEB SCH ×2 (10:05→20:30)
[2019-12-09] MEDS ORDERED: KETOROLAC 30 MG/1 ML ONE (10:10)
[2019-12-09] MEDS ORDERED: PROPOFOL 10 MG/ML, 50ML ONE (10:10)
[2019-12-09] MEDS ORDERED: CEFAZOLIN 1,000 MG ONE ×2 (10:10→15:16)
[2019-12-09] MEDS ORDERED: PHENYLEPHRINE 10 MG/ML ONE (10:10)
[2019-12-09] MEDS ORDERED: DEXAMETHASONE 4 MG/ML, 1ML ONE ×2 (10:10→15:16)
[2019-12-09] MEDS ORDERED: SUCCINYLCHOLINE 20 MG/ML, 10ML ONE ×2 (10:10→15:16)
[2019-12-09] MEDS ORDERED: ONDANSETRON 2MG/ML, 2ML ONE ×2 (10:10→15:16)
[2019-12-09] MEDS: INSULIN LISPRO 100 UNITS/ML, PEN SQ-INSULIN SCH ×2 (10:44→15:56)
[2019-12-09 12:47] VITALS: BP 142/77
[2019-12-09 13:30] VITALS: BP 191/75
[2019-12-09] MEDS ORDERED: MIDAZOLAM 1 MG/ML, 2ML ONE (14:08)
[2019-12-09] MEDS ORDERED: FENTANYL PF 250 MCG/5ML ONE (14:10)
[2019-12-09] MEDS ORDERED: PROPOFOL 50 ML ONE (14:10)
[2019-12-09] MEDS ORDERED: THROMBIN 5,000 UNIT VIAL TP ONE (14:14)
[2019-12-09] MEDS ORDERED: EPINEPHRINE 1 MG/ML, 1ML ONE (14:14)
[2019-12-09] MEDS ORDERED: BUPIVACAINE/PF 0.25% ONE (14:14)
[2019-12-09] MEDS ORDERED: VANCOMYCIN 1,000 MG ONE (14:14)
[2019-12-09] MEDS ORDERED: BACITRACIN 50,000 UNIT ONE (14:14)
[2019-12-09] MEDS ORDERED: NEOSTIGMINE 1 MG/ML, 10ML ONE (15:16)
[2019-12-09] MEDS ORDERED: PROPOFOL 10 MG/ML, 20ML ONE (15:16)
[2019-12-09] MEDS ORDERED: GLYCOPYRROLATE 0.2MG/1ML, 5ML ONE (15:16)
[2019-12-09] MEDS ORDERED: ROCURONIUM 10MG/ML,5ML ONE (15:16)
[2019-12-09] MEDS ORDERED: PROMETHAZINE 25 MG/ML, 1ML IV PRN (16:00)
[2019-12-09] MEDS ORDERED: EPHEDRINE 50 MG/ML, 1ML IVPush PRN (16:00)
[2019-12-09] MEDS ORDERED: HYDROmorphone 2 MG/ML, 1ML IVPush PRN (16:00)
[2019-12-09] MEDS ORDERED: ONDANSETRON 2MG/ML, 2ML IV PRN ×2 (16:00→21:00)
[2019-12-09] MEDS ORDERED: FENTANYL PF 100 MCG/2ML IV PRN (16:00)
[2019-12-09] MEDS ORDERED: hydrALAzine 20 MG/ML, 1ML IV PRN (16:00)
[2019-12-09] MEDS ORDERED: LABETALOL 5MG/ML, 20ML IV PRN (16:00)
[2019-12-09] MEDS ORDERED: OXYcodone 5 MG/5 ML ORAL.SOL UDC PO PRN (16:00)
[2019-12-09] MEDS ORDERED: MEPERIDINE/PF 25MG/ML,1ML IVPush PRN (16:00)
[2019-12-09] MEDS ORDERED: DEXTROSE 50%, 50ML SYRINGE ONE (16:13)
[2019-12-09] MEDS ORDERED: HYDROmorphone 2 MG/ML, 1ML IM PRN (20:30)
[2019-12-09] MEDS ORDERED: HYDROmorphone 2MG TABLET PO PRN (20:30)
[2019-12-09] MEDS ORDERED: PHARMACY MAY ADJ FOR RENAL FX MC PRN (20:30)
[2019-12-09] MEDS ORDERED: DIPHENHYDRAMINE 25 MG CAPSULE PO PRN (20:30)
[2019-12-09] MEDS ORDERED: OXYcodone IR 5MG TABLET PO PRN ×2 (20:30)
[2019-12-09] MEDS ORDERED: BISACODYL 10 MG SUPP PR PRN (21:00)
[2019-12-09] MEDS ORDERED: MAGNESIUM HYDROXIDE 8%, 30ML UDC PO PRN (21:00)
[2019-12-09] MEDS ORDERED: DIPHENHYDRAMINE 50 MG/ML, 1ML IM PRN (21:00)
[2019-12-09] MEDS ORDERED: DIPHENHYDRAMINE 50 MG/ML, 1ML IVPush PRN (21:00)
[2019-12-09] MEDS ORDERED: PROMETHAZINE 25 MG/ML, 1ML IM PRN (21:00)
[2019-12-09] MEDS: INSULIN REGULAR 100 UNITS/ML, 3ML VIAL SQ-INSULIN SCH (21:00)
[2019-12-09] MEDS ORDERED: ZOLPIDEM 5MG TABLET PO PRN (21:00)
[2019-12-09] MEDS ORDERED: NS + 20MEQ KCL 1,000 ML IV SCH (21:30)
[2019-12-09 23:30] VITALS: BP 123/51
[2019-12-09] MEDS: CEFAZOLIN PMX 1GM/50ML 50 ML IVPB SCH (23:45)
[2019-12-09] MEDS: MONTELUKAST 10 MG TABLET PO SCH (23:52)
[2019-12-09] MEDS: METHOCARBAMOL 500 MG TABLET PO SCH (23:52)
[2019-12-10] MEDS: ALBUTEROL/IPRATROPIUM 2.5MG/0.5MG, 3 ML NEB SCH ×4 (02:42→20:21)
[2019-12-10 03:26] VITALS: BP 108/65
[2019-12-10 05:45] LABS: BASOPHILS % (AUTO) 0 % (0-1); EOSINOPHILS % (AUTO) 0 % (1-7); LYMPHOCYTES # (AUTO) 0.67 x10^3/uL (1-3.4); LYMPHOCYTES % (AUTO) 6 % (22-44); MD NO; MEAN CORPUSCULAR HEMOGLOBIN 28.9 pg (27.0-34.8); MEAN CORPUSCULAR HGB CONC 32.9 g/dL (32.4-35.8); MEAN PLATELET VOLUME 8.1 fL (7.4-10.4); MONOCYTES # (AUTO) 0.13 x10^3/uL (0.2-0.8); MONOCYTES % (AUTO) 1 % (2-9); NEUTROPHILS # (AUTO) 10.97 x10^3/uL (1.8-6.8); NEUTROPHILS % (AUTO) 93 % (42-75); PLATELET COUNT 294 x10^3/uL (130-400); RED BLOOD COUNT 3.47 x10^6/uL (3.82-5.3); RED CELL DISTRIBUTION WIDTH 15.9 % (9.6-15.2)
[2019-12-10 05:47] LABS: ANION GAP 6 mmol/L (5-15); CALCIUM 8.3 mg/dL (8.5-10.1); CHLORIDE 95 mmol/L (98-107); CREATININE 0.75 mg/dL (0.55-1.02)
[2019-12-10 07:51] VITALS: BP 118/51
[2019-12-10] MEDS: CEFAZOLIN PMX 1GM/50ML 50 ML IVPB SCH (08:14)
[2019-12-10] MEDS: BUDESONIDE 0.5 MG/2 ML INHA NEB SCH ×2 (09:00→20:21)
[2019-12-10 09:26] VITALS: BP_SYST 100; BP_SYST 129; BP_DIAS 56; BP_DIAS 65
[2019-12-10] MEDS: METHOCARBAMOL 500 MG TABLET PO SCH ×3 (09:30→20:57)
[2019-12-10] MEDS: CARBIDOPA/LEVODOPA 25 MG/100 MG TABLET PO SCH ×3 (09:30→20:57)
[2019-12-10] MEDS: DULOXETINE 30 MG CAPSULE.DR PO SCH ×2 (09:31→20:57)
[2019-12-10] MEDS: CARVEDILOL 3.125 MG TABLET PO SCH ×2 (09:31→20:57)
[2019-12-10] MEDS: GABAPENTIN 300 MG CAPSULE PO SCH ×3 (09:31→20:57)
[2019-12-10] MEDS: SENNA/DOCUSATE TABLET PO SCH (09:31)
[2019-12-10] MEDS: INSULIN REGULAR 100 UNITS/ML, 3ML VIAL SQ-INSULIN SCH ×4 (09:32→20:37)
[2019-12-10] MEDS: SODIUM CHLORIDE FLUSH 10ML SYR IVF SCH ×2 (09:33→20:57)
[2019-12-10 12:23] VITALS: BP 123/67
[2019-12-10] MEDS ORDERED: SODIUM CHLORIDE 0.9% 1,000 ML IV SCH (16:30)
[2019-12-10] MEDS: metFORMIN 500 MG TABLET PO SCH (16:47)
[2019-12-10] MEDS ORDERED: ENOXAPARIN 40 MG/0.4 ML SQ SCH (18:00)
[2019-12-10] MEDS: ENOXAPARIN 40 MG/0.4 ML SQ SCH (18:07)
[2019-12-10] MEDS: ACETAMINOPHEN 325 MG TABLET PO PRN (18:08)
[2019-12-10 18:26] VITALS: BP 139/65
[2019-12-10] MEDS: NS + 20MEQ KCL 1,000 ML IV SCH (20:53)
[2019-12-10] MEDS: MONTELUKAST 10 MG TABLET PO SCH (20:57)
[2019-12-11 01:01] VITALS: BP 103/60
[2019-12-11] MEDS: ALBUTEROL/IPRATROPIUM 2.5MG/0.5MG, 3 ML NEB SCH ×4 (03:00→19:47)
[2019-12-11 05:41] LABS: MEAN CORPUSCULAR HEMOGLOBIN 28.9 pg (27.0-34.8); MEAN CORPUSCULAR HGB CONC 33.4 g/dL (32.4-35.8); MEAN CORPUSCULAR VOLUME 86.4 fL (80-100); MEAN PLATELET VOLUME 8.3 fL (7.4-10.4); PLATELET COUNT 253 x10^3/uL (130-400); RED BLOOD COUNT 2.82 x10^6/uL (3.82-5.3); RED CELL DISTRIBUTION WIDTH 15.6 % (9.6-15.2)
[2019-12-11 06:06] LABS: BASOPHILS # (AUTO) 0.07 x10^3/uL (0-0.1); BASOPHILS % (AUTO) 1 % (0-1); EOSINOPHILS # (AUTO) 0.04 x10^3/uL (0-0.4); EOSINOPHILS % (AUTO) 0 % (1-7); LYMPHOCYTES # (AUTO) 2.37 x10^3/uL (1-3.4); LYMPHOCYTES % (AUTO) 21 % (22-44); MD SCAN; MONOCYTES % (AUTO) 10 % (2-9); NEUTROPHILS # (AUTO) 7.97 x10^3/uL (1.8-6.8); NEUTROPHILS % (AUTO) 69 % (42-75)
[2019-12-11] MEDS: INSULIN REGULAR 100 UNITS/ML, 3ML VIAL SQ-INSULIN SCH ×4 (06:08→21:00)
[2019-12-11 06:52] VITALS: BP 138/59
[2019-12-11] MEDS: NS + 20MEQ KCL 1,000 ML IV SCH (07:30)
[2019-12-11 09:38] VITALS: BP 124/66
[2019-12-11] MEDS: SENNA/DOCUSATE TABLET PO SCH (09:43)
[2019-12-11] MEDS: METHOCARBAMOL 500 MG TABLET PO SCH ×3 (09:43→20:32)
[2019-12-11] MEDS: DULOXETINE 30 MG CAPSULE.DR PO SCH ×2 (09:43→20:32)
[2019-12-11] MEDS: GABAPENTIN 300 MG CAPSULE PO SCH ×3 (09:43→20:32)
[2019-12-11] MEDS: CARVEDILOL 3.125 MG TABLET PO SCH ×2 (09:43→20:32)
[2019-12-11] MEDS: metFORMIN 500 MG TABLET PO SCH ×2 (09:43→16:53)
[2019-12-11] MEDS: CARBIDOPA/LEVODOPA 25 MG/100 MG TABLET PO SCH ×3 (09:43→20:32)
[2019-12-11] MEDS: SODIUM CHLORIDE FLUSH 10ML SYR IVF SCH ×2 (09:44→21:00)
[2019-12-11] MEDS: ACETAMINOPHEN 325 MG TABLET PO PRN ×2 (09:44→16:53)
[2019-12-11] MEDS: BUDESONIDE 0.5 MG/2 ML INHA NEB SCH ×2 (10:18→19:47)
[2019-12-11 10:20] LABS: ANION GAP 5 mmol/L (5-15); CALCIUM 7.9 mg/dL (8.5-10.1); CHLORIDE 98 mmol/L (98-107); CREATININE 0.69 mg/dL (0.55-1.02)
[2019-12-11 13:09] VITALS: BP 122/66
[2019-12-11] MEDS: ENOXAPARIN 40 MG/0.4 ML SQ SCH (18:44)
[2019-12-11 18:56] VITALS: BP 129/67
[2019-12-11] MEDS: MONTELUKAST 10 MG TABLET PO SCH (20:32)
[2019-12-11] MEDS: AMLODIPINE 5 MG TABLET PO SCH (20:33)
[2019-12-12 00:52] VITALS: BP 132/69
[2019-12-12] MEDS: ALBUTEROL/IPRATROPIUM 2.5MG/0.5MG, 3 ML NEB SCH ×4 (02:40→18:58)
[2019-12-12 06:02] LABS: BASOPHILS # (AUTO) 0.03 x10^3/uL (0-0.1); BASOPHILS % (AUTO) 0 % (0-1); EOSINOPHILS # (AUTO) 0.21 x10^3/uL (0-0.4); EOSINOPHILS % (AUTO) 2 % (1-7); LYMPHOCYTES # (AUTO) 1.56 x10^3/uL (1-3.4); LYMPHOCYTES % (AUTO) 17 % (22-44); MD NO; MEAN CORPUSCULAR HEMOGLOBIN 29.4 pg (27.0-34.8); MEAN CORPUSCULAR HGB CONC 32.9 g/dL (32.4-35.8); MEAN CORPUSCULAR VOLUME 89.2 fL (80-100); MEAN PLATELET VOLUME 8.2 fL (7.4-10.4); MONOCYTES # (AUTO) 0.99 x10^3/uL (0.2-0.8); MONOCYTES % (AUTO) 11 % (2-9); NEUTROPHILS # (AUTO) 6.63 x10^3/uL (1.8-6.8); NEUTROPHILS % (AUTO) 70 % (42-75); PLATELET COUNT 257 x10^3/uL (130-400); RED BLOOD COUNT 2.69 x10^6/uL (3.82-5.3); RED CELL DISTRIBUTION WIDTH 15.8 % (9.6-15.2)
[2019-12-12] MEDS: INSULIN REGULAR 100 UNITS/ML, 3ML VIAL SQ-INSULIN SCH ×4 (06:23→21:00)
[2019-12-12 07:18] VITALS: BP 137/61
[2019-12-12] MEDS: BUDESONIDE 0.5 MG/2 ML INHA NEB SCH ×2 (07:23→18:58)
[2019-12-12 08:21] VITALS: BP 135/73
[2019-12-12] MEDS: DULOXETINE 30 MG CAPSULE.DR PO SCH ×2 (08:25→20:37)
[2019-12-12] MEDS: GABAPENTIN 300 MG CAPSULE PO SCH ×3 (08:25→20:37)
[2019-12-12] MEDS: metFORMIN 500 MG TABLET PO SCH ×2 (08:25→16:27)
[2019-12-12] MEDS: ACETAMINOPHEN 325 MG TABLET PO PRN (08:25)
[2019-12-12] MEDS: SENNA/DOCUSATE TABLET PO SCH (08:25)
[2019-12-12] MEDS: AMLODIPINE 5 MG TABLET PO SCH ×2 (08:26→20:37)
[2019-12-12] MEDS: CARVEDILOL 3.125 MG TABLET PO SCH ×2 (08:26→20:37)
[2019-12-12] MEDS: CARBIDOPA/LEVODOPA 25 MG/100 MG TABLET PO SCH ×3 (08:26→20:37)
[2019-12-12] MEDS: METHOCARBAMOL 500 MG TABLET PO SCH ×3 (08:27→20:37)
[2019-12-12] MEDS: SODIUM CHLORIDE FLUSH 10ML SYR IVF SCH ×2 (08:27→20:37)
[2019-12-12] MEDS ORDERED: LISINOPRIL 5 MG TABLET PO SCH (09:00)
[2019-12-12 13:41] VITALS: BP 129/63
[2019-12-12] MEDS: ACETAMINOPHEN 325 MG TABLET PO SCH (16:27)
[2019-12-12] MEDS ORDERED: OXYcodone IR 5MG TABLET PO PRN (16:30)
[2019-12-12] MEDS: ENOXAPARIN 40 MG/0.4 ML SQ SCH (18:13)
[2019-12-12 19:45] VITALS: BP 130/52
[2019-12-12] MEDS: MONTELUKAST 10 MG TABLET PO SCH (20:37)
[2019-12-13] MEDS: ACETAMINOPHEN 325 MG TABLET PO SCH ×2 (01:00→09:01)
[2019-12-13 02:29] VITALS: BP 139/69
[2019-12-13] MEDS: ALBUTEROL/IPRATROPIUM 2.5MG/0.5MG, 3 ML NEB SCH ×3 (03:00→15:00)
[2019-12-13 05:17] LABS: BASOPHILS # (AUTO) 0.08 x10^3/uL (0-0.1); BASOPHILS % (AUTO) 1 % (0-1); EOSINOPHILS % (AUTO) 5 % (1-7); LYMPHOCYTES # (AUTO) 2.26 x10^3/uL (1-3.4); LYMPHOCYTES % (AUTO) 23 % (22-44); MD NO; MEAN CORPUSCULAR HEMOGLOBIN 28.6 pg (27.0-34.8); MEAN CORPUSCULAR HGB CONC 32.7 g/dL (32.4-35.8); MEAN CORPUSCULAR VOLUME 87.4 fL (80-100); MEAN PLATELET VOLUME 7.6 fL (7.4-10.4); MONOCYTES # (AUTO) 0.92 x10^3/uL (0.2-0.8); MONOCYTES % (AUTO) 9 % (2-9); NEUTROPHILS # (AUTO) 6.29 x10^3/uL (1.8-6.8); NEUTROPHILS % (AUTO) 63 % (42-75); PLATELET COUNT 278 x10^3/uL (130-400); RED BLOOD COUNT 2.84 x10^6/uL (3.82-5.3); RED CELL DISTRIBUTION WIDTH 15.9 % (9.6-15.2)
[2019-12-13] MEDS: INSULIN REGULAR 100 UNITS/ML, 3ML VIAL SQ-INSULIN SCH ×2 (06:11→11:00)
[2019-12-13 07:00] VITALS: BP 138/62
[2019-12-13] MEDS ORDERED: LISINOPRIL 20 MG TABLET PO SCH (09:00)
[2019-12-13] MEDS: CARVEDILOL 3.125 MG TABLET PO SCH (09:00)
[2019-12-13] MEDS: metFORMIN 500 MG TABLET PO SCH (09:00)
[2019-12-13] MEDS: SENNA/DOCUSATE TABLET PO SCH (09:00)
[2019-12-13] MEDS: METHOCARBAMOL 500 MG TABLET PO SCH ×2 (09:00→15:31)
[2019-12-13] MEDS: CARBIDOPA/LEVODOPA 25 MG/100 MG TABLET PO SCH ×2 (09:00→15:31)
[2019-12-13] MEDS: SODIUM CHLORIDE FLUSH 10ML SYR IVF SCH (09:00)
[2019-12-13] MEDS: AMLODIPINE 5 MG TABLET PO SCH (09:01)
[2019-12-13] MEDS: GABAPENTIN 300 MG CAPSULE PO SCH ×2 (09:01→15:31)
[2019-12-13] MEDS: DULOXETINE 30 MG CAPSULE.DR PO SCH (09:01)
[2019-12-13] MEDS: BUDESONIDE 0.5 MG/2 ML INHA NEB SCH (09:59)
[2019-12-13] MEDS ORDERED: CARV3.1212 PO (10:39)
[2019-12-13] MEDS ORDERED: CARB1TAB22 PO (10:39)
[2019-12-13] MEDS ORDERED: METH500T7 PO (10:39)
[2019-12-13] MEDS ORDERED: MONT10TA11 PO (10:39)
[2019-12-13] MEDS ORDERED: SENN-193 PO (10:39)
== END 2019-12-13 15:45 | disposition home health service (06) | DRG 460 ==
LOC: ED 18:27 → EDIP 21:06 → 3N 21:07 → 4NE 12-09
PROVIDERS: ADMIT Internal Medicine; ATTEND Hospitalist
PROC: 00NX0ZZ Release Thoracic Spinal Cord, Open Approach (ICD-10-PCS; 2019-12-09)
PROC: 00NY0ZZ Release Lumbar Spinal Cord, Open Approach (ICD-10-PCS; 2019-12-09)
PROC: 01N80ZZ Release Thoracic Nerve, Open Approach (ICD-10-PCS; 2019-12-09)
PROC: 01NB0ZZ Release Lumbar Nerve, Open Approach (ICD-10-PCS; 2019-12-09)
PROC: 0SG0071 Fusion of Lumbar Vertebral Joint with Autologous Tissue Substitute, Posterior Approach, Posterior Column, Open Approach (ICD-10-PCS; 2019-12-09)
PROC: 4A11X4G Monitoring of Peripheral Nervous Electrical Activity, Intraoperative, External Approach (ICD-10-PCS; 2019-12-09)
PROC: 0RGA071 Fusion of Thoracolumbar Vertebral Joint with Autologous Tissue Substitute, Posterior Approach, Posterior Column, Open Approach (ICD-10-PCS; principal; 2019-12-09 14:00)
DX: M48.05 Spinal stenosis, thoracolumbar region (principal); M51.06 Intervertebral disc disorders with myelopathy, lumbar region; G95.20 Unspecified cord compression; R32 Unspecified urinary incontinence; G20 Parkinson's disease; E11.42 Type 2 diabetes mellitus with diabetic polyneuropathy; E11.649 Type 2 diabetes mellitus with hypoglycemia without coma; I10 Essential (primary) hypertension; J43.9 Emphysema, unspecified; M40.204 Unspecified kyphosis, thoracic region; Z87.891 Personal history of nicotine dependence; Z82.49 Family history of ischemic heart disease and other diseases of the circulatory system; Z90.710 Acquired absence of both cervix and uterus; Z99.81 Dependence on supplemental oxygen; I95.9 Hypotension, unspecified
CPT/HCPCS: 36415; 71045; 72080; 72131; 80048; 80053; 81001; 82040; 82962; 83036; 85025; 85610; 85730; 87086; 93005; 94640; 95938; 95941; 96374; 96376; 99285; C1713; C1729; G0378; J0171; J0690; J1100; J1170; J1650; J1815; J1885; J2250; J2405; J2704; J2710; J3010; J3370; J3480; J3490; J7626; C1762; J0330; J2370; J7030; J7042; J7512

== ENCOUNTER 2021-03-01 12:02 | Emergency (ER) | payer MEDICARE, MEDICAID ==
[~2021-03-01] VITALS: Ht 149.9 cm; Wt 64.2 kg
[~2021-03-01 12:02] MED LIST changes: +ACID1TAB7 PO; +ALBU18HF INH; +AMLO-211 PO; -AMLO10TA8 PO; +CARB1TAB22 PO; +CARV3.1212 PO; -CYCL-259 PO; +CYCL10TA2 PO; +DOXY-246 PO; -DOXY100C15 PO; +FAMO20TA7 PO; +FERR-51 PO; +FLUT1AER INH; +FURO40TA6 PO; +HYDR-3343 PO; +METF500T27 PO; +METH-639 PO; -MONT10TA11 PO; +MONT10TA17 PO; +POLY17PO5 PO; +POTA20TA6 PO; +PROP10DR2 EACHEYE; +SENN-193 PO
--- NOTE | 2021-03-01 12:54 | NUR ---
SBAR RPT TO MAYELIN LOREDO
[2021-03-01 13:24] LABS: BASOPHILS % (AUTO) 1 % (0-1); EOSINOPHILS % (AUTO) 5 % (1-7); LYMPHOCYTES % (AUTO) 30 % (22-44); MEAN CORPUSCULAR HEMOGLOBIN 29.3 pg (27.0-34.8); MEAN CORPUSCULAR HGB CONC 33.2 g/dL (32.4-35.8); MEAN PLATELET VOLUME 6.8 fL (7.4-10.4); MONOCYTES % (AUTO) 7 % (2-9); NEUTROPHILS % (AUTO) 58 % (42-75); PLATELET COUNT 290 x10^3/uL (130-400); RED BLOOD COUNT 4.14 x10^6/uL (3.82-5.3); RED CELL DISTRIBUTION WIDTH 16.6 % (9.6-15.2)
--- NOTE | 2021-03-01 13:30 | NUR ---
PT AMBULATED TO BR WITH ASSIST FROM RN AND DAUGHTER. INSTRUCTED ON CLEAN CATCH URINE SAMPLE.
[2021-03-01 13:34] LABS: ALANINE AMINOTRANSFERASE 9 U/L (12-78); ALBUMIN 3.5 g/dL (3.4-5.0); ANION GAP 9 mmol/L (5-15); CALCIUM 8.7 mg/dL (8.5-10.1); CHLORIDE 107 mmol/L (98-107); CREATININE 0.88 mg/dL (0.55-1.02)
[2021-03-01 13:36] VITALS: BP 148/54
[2021-03-01 13:39] LABS: ALKALINE PHOSPHATASE 115 U/L (45-117); BILIRUBIN,TOTAL 0.3 mg/dL (0.2-1.0); TOTAL PROTEIN 7.7 g/dL (6.4-8.2); TROPONIN I < 0.015 ng/mL (0.000-0.045)
[2021-03-01 13:51] LABS: MICROSCOPIC NOT IND
[2021-03-01] MEDS ORDERED: SODIUM CHLORIDE FLUSH 10ML SYR IVF ONE (14:00)
[2021-03-01] MEDS ORDERED: SODIUM CHLORIDE 0.9% 1,000ML IVBOLUS ONE (14:00)
--- NOTE | 2021-03-01 14:20 | NUR ---
PER ERP, PT DOES NOT NEED IV/FLUIDS. PT REQUESTING WATER & SNACKS.
--- NOTE | 2021-03-01 14:25 | NUR ---
ERP WAS IN FOR RECHECK AND SPOKE WITH PT AND DAUGHTER IN [place]. SNACK AND WATER PROVIDED TO PT. D/C INSTRUCTIONS & F/U APPT RV'WD WITH PT AND DAUGHTER. PT AMBULATED OUT OF ED WITH OWN PLATFORM WALKER WITH DAUGHTER WITHOUT DIFFICULTY.
== END 2021-03-01 14:37 | disposition home or self-care (01) ==
LOC: ED 13:14
DX: R42 Dizziness and giddiness (principal); F41.1 Generalized anxiety disorder; R53.1 Weakness; R94.31 Abnormal electrocardiogram [ECG] [EKG]; J44.9 Chronic obstructive pulmonary disease, unspecified; I11.0 Hypertensive heart disease with heart failure; I50.9 Heart failure, unspecified; E11.649 Type 2 diabetes mellitus with hypoglycemia without coma; Z90.710 Acquired absence of both cervix and uterus
CPT/HCPCS: 71045; 80053; 81003; 82962; 84484; 85025; 93005; 99285